=== PATIENT | male | born 1980 | race Caucasian/White ===

== ENCOUNTER 2016-09-23 12:11 | Observation (INO) | payer MEDICAID, MEDICARE ==
[~2016-09-23] VITALS: Ht 172.7 cm; Wt 94.8 kg
[2016-09-23] MEDS ORDERED: LORA0.5T2 PO (12:15)
[2016-09-23] MEDS ORDERED: VERA100C4 PO (12:15)
[2016-09-23] MEDS ORDERED: LORAZEPAM 2MG/ML CPJ ONE (13:25)
[2016-09-23] MEDS ORDERED: LORAZEPAM 2MG/ML CPJ IV ONE (13:30)
[2016-09-23] MEDS ORDERED: LEVETIRACETAM 1,000 MG in SODIUM CHLORIDE 0.9% 100 ML IV ONE (13:30)
[2016-09-23 13:32] LABS: BASOPHILS % 0.4 % (0.0-2.0); EOSINOPHILS % 0.9 % (0.0-5.0); HEMATOCRIT. 45.6 % (42.0-52.0); HEMOGLOBIN. 15.1 g/dL (14.0-18.0); LYMPHOCYTES % 29.7 % (20.0-50.0); MEAN CORPUSCULAR HEMOGLOBIN 27.9 pg (28.0-32.0); MEAN CORPUSCULAR HGB CONC 33.1 g/dL (31.0-37.0); MEAN CORPUSCULAR VOLUME 84.3 fL (80.0-94.0); MEAN PLATELET VOLUME 8.7 fl (7.4-10.4); MONOCYTES % 13.6 % (2.0-8.0); NEUTROPHILS % 55.4 % (40.0-76.0); PLATELET 283 x1000/uL (130-400); RED BLOOD CELL COUNT 5.41 mill/uL (4.7-6.1); RED CELL DISTRIBUTION WIDTH 13.2 % (11.6-14.6); WHITE BLOOD COUNT 13.3 x1000/uL (4.5-11.0)
[2016-09-23 13:39] LABS: CHLORIDE 99 mEq/L (98-107); INDEX HEMOLYSI 1 (1-3); INDEX ICTERIC 1 (1-4); INDEX LIPEMIC 1 (1-3)
[2016-09-23 13:44] LABS: BG BASE EXCESS -16.1 mmol/L (-2.0-2.0); BG CARBOXYHEMOGLOBIN 0.3 % (0.5-1.5); BG DEOXYHEMOGLOBIN 0.3 % (0.0-5.0); BG FRACTION INSPIRED OXYGEN 100; BG HCO3 ACT 12.6 mmol/L (22.0-26.0); BG METHEMOGLOBIN 0.4 % (0.0-1.5); BG OXYGEN SATURATION 99.7 % (92.0-98.5); BG PCO2 39.8 mmHg (35.0-45.0); BG SAMPLE SITE RIGHT RADIAL; BG TOTAL HEMOGLOBIN 15.7 g/dL (12.0-18.0); BG VENT MODE MASK - NRB
[2016-09-23 13:47] LABS: ALANINE AMINOTRANSFERASE 78 IU/L (13-61); ALBUMIN 3.8 g/dL (3.4-5.0); ANION GAP 15; CALCIUM 8.7 mg/dL (8.5-10.1); CARBON DIOXIDE 26 mEq/L (21-32); ETHANOL BLOOD < 10 mg/dL; UREA NITROGEN BLOOD 7 mg/dL (7-21); eGFR > 60 mL/min (>60)
[2016-09-23 14:02] LABS: CLARITY URINE CLEAR (CLEAR); COLOR URINE YELLOW (YELLOW); GLUCOSE URINE NEGATIVE (NEGATIVE); KETONES URINE NEGATIVE (NEGATIVE); LEUKOCYTE ESTERASE URINE NEGATIVE (NEGATIVE); NITRITE URINE NEGATIVE (NEGATIVE); OCCULT BLOOD URINE NEGATIVE (NEGATIVE); PROTEIN URINE 1+ (NEGATIVE); SPECIFIC GRAVITY URINE 1.013 (1.005-1.030); UROBILINOGEN URINE 0.2 E.U./dL (0.2-1.0)
[2016-09-23 14:23] LABS: COARSE GRANULAR CASTS URINE 0-5 /lpf
[2016-09-23 14:24] LABS: BACTERIA URINE TRACE; RBC URINE 0-2 /hpf (0-2); SQUAMOUS EPITHELIAL CELL URINE RARE /lpf (RARE/1+); WBC URINE 0-2 /hpf (0-2)
[2016-09-23 14:25] LABS: *AMPHETAMINES SCREEN URINE NEGATIVE (NEGATIVE); *BARBITURATES SCREEN URINE NEGATIVE (NEGATIVE); *BENZODIAZEPINES SCREEN URINE NEGATIVE (NEGATIVE); *COCAINE SCREEN URINE NEGATIVE (NEGATIVE); CANNABINOID URINE SCREEN NEGATIVE (NEGATIVE); ECSTASY MDMA SCREEN URINE NEGATIVE (NEGATIVE); METHADONE URINE SCREEN NEGATIVE (NEGATIVE); OPIATES URINE SCREEN NEGATIVE (NEGATIVE); PHENCYCLIDINE URINE SCREEN NEGATIVE (NEGATIVE)
[2016-09-23 16:48] VITALS: BP 125/93
[2016-09-23 20:00] VITALS: BP_SYST 114; BP_SYST 126; BP_DIAS 79; BP_DIAS 86
[2016-09-23] MEDS ORDERED: LORAZEPAM 2MG/ML CPJ IV PRN (20:30)
[2016-09-23] MEDS: LEVETIRACETAM 500MG/5ML CUP PO SCH (22:52)
[2016-09-23] MEDS: DEXT 5%/0.45% NACL 1000ML 1,000 ML IV SCH (22:52)
[2016-09-23] MEDS: ENOXAPARIN 30MG/0.3ML SYR SUBCUT SCH (22:53)
[2016-09-23 23:35] LABS: BG FRACTION INSPIRED OXYGEN 21; BG VENT MODE ROOM AIR
[2016-09-23 23:36] LABS: BG BASE EXCESS 0.3 mmol/L (-2.0-2.0); BG HCO3 ACT 25.8 mmol/L (22.0-26.0); BG OXYGEN SATURATION 94.7 % (92.0-98.5); BG PCO2 44.9 mmHg (35.0-45.0); BG PH 7.378 (7.350-7.450); BG PO2 76.5 mmHg (75.0-100.0); BG TOTAL HEMOGLOBIN 14.2 g/dL (12.0-18.0)
[2016-09-23 23:37] LABS: BG CARBOXYHEMOGLOBIN 0.6 % (0.5-1.5); BG DEOXYHEMOGLOBIN 5.3 % (0.0-5.0); BG METHEMOGLOBIN 0.1 % (0.0-1.5)
[2016-09-23 23:47] LABS: BG VENT MODE ROOM AIR
[2016-09-23 23:48] LABS: BG BASE EXCESS -0.5 mmol/L (-2.0-2.0); BG FRACTION INSPIRED OXYGEN 21; BG HCO3 ACT 24.7 mmol/L (22.0-26.0); BG PCO2 42.7 mmHg (35.0-45.0); BG PH 7.381 (7.350-7.450); BG PO2 79.1 mmHg (75.0-100.0); BG TOTAL HEMOGLOBIN 14.5 g/dL (12.0-18.0)
[2016-09-23 23:49] LABS: BG CARBOXYHEMOGLOBIN 0.5 % (0.5-1.5); BG METHEMOGLOBIN 0.3 % (0.0-1.5); BG OXYHEMOGLOBIN 94.2 % (94.0-97.0)
[2016-09-24] VITALS: BP 122/99
[2016-09-24 04:00] VITALS: BP 118/76
[2016-09-24 08:00] VITALS: BP 117/80
[2016-09-24] MEDS: ENOXAPARIN 30MG/0.3ML SYR SUBCUT SCH ×4 (08:53→20:48)
[2016-09-24] MEDS: LEVETIRACETAM 500MG/5ML CUP PO SCH ×2 (08:56→20:46)
[2016-09-24] MEDS ORDERED: ENOXAPARIN 40MG/0.4ML SYR SUBCUT SCH (09:00)
[2016-09-24 11:09] LABS: BG SAMPLE SITE RIGHT RADIAL
[2016-09-24 11:11] LABS: BG SAMPLE SITE LEFT RADIAL
[2016-09-24 12:00] VITALS: BP 112/83
[2016-09-24] MEDS: DEXT 5%/0.45% NACL 1000ML 1,000 ML IV SCH (14:10)
[2016-09-24 20:07] VITALS: BP 137/90
[2016-09-25 00:12] VITALS: BP 125/92
[2016-09-25 04:10] VITALS: BP 117/90
[2016-09-25 08:00] VITALS: BP 116/83
[2016-09-25] MEDS: LEVETIRACETAM 500MG/5ML CUP PO SCH (08:03)
[2016-09-25] MEDS: ENOXAPARIN 30MG/0.3ML SYR SUBCUT SCH (08:04)
[2016-09-25 12:00] VITALS: BP 119/65
[2016-09-25 13:25] VITALS: BP 119/65
== END 2016-09-25 14:20 | disposition home or self-care (01) ==
LOC: ER 12:20 → INTOOBSV 13:32 → 7WST 13:32
PROVIDERS: ADMIT Internal Medicine; ATTEND Internal Medicine
DX: G40.919 Epilepsy, unspecified, intractable, without status epilepticus (principal); F72 Severe intellectual disabilities; R63.5 Abnormal weight gain
CPT/HCPCS: 36415; 36600; 80053; 80305; 81001; 82375; 82805; 85025; 95819; 96361; 96365; 96366; 96372; 99291; G0378; G0482; J1650; J1953; J2060; J3490; J7050